=== PATIENT | male | born 1985 ===

== ENCOUNTER 2025-02-26 13:06 | Outpatient (CLI) | payer MEDICAID, SELFPAY ==
[2025-02-26 13:25] LABS: Abs Immature Grans 0.02 10^3/uL (0.0-0.06); HCT 43.0 % (40.0-50.0); HGB 14.8 g/dL (13.5-17.5); Immature Grans % 0.4 %; MCH 29.2 pg (27.0-33.0); MCHC 34.4 % (32.0-36.0); MCV 85 fL (80-95); MPV 10.2 fL (8.0-11.0); Platelet Count 133 10^3/uL (130-400); RBC 5.06 10^6/uL (4.36-5.78); RDW 13.3 % (11.8-14.1); RDW-SD 41.2 fL; WBC 5.48 10^3/uL (4.4-10.8)
[2025-02-26 13:55] LABS: ALT 408 U/L (16-63); AST 227 U/L (15-37); Albumin 3.9 g/dL (3.4-5.0); Alkaline Phosphatase 64 U/L (46-116); Anion Gap 5.8 mmol/L (3-11); BUN 17 mg/dL (7-18); Bilirubin, Total 0.8 mg/dL (0.2-1.0); CO2 30.2 mmol/L (21.0-32.0); Calcium 9.5 mg/dL (8.5-10.1); Chloride 102 mmol/L (98-107); Estimated GFR 111.42 (mL/min/1.73m2); Glucose 82 mg/dL (74-106); Potassium 3.9 mmol/L (3.5-5.1); Sodium 138 mmol/L (136-145); Total Protein 9.0 g/dL (6.4-8.2)
[2025-02-27 15:18] LABS: Hepatitis C Ab w Rflx HCV PCR Reactive (Negative)
[2025-02-27 23:02] LABS: Hep B Core Antibody Negative (Negative)
[2025-02-28 12:25] LABS: HCV RNA Qualitative Detected (Undetected)
== END 2025-02-26 13:07 | disposition home or self-care (01) ==
LOC: LBO 13:06
PROVIDERS: Visit Provider Nurse Practitioner
DX: B19.20 Unspecified viral hepatitis C without hepatic coma (principal)
CPT/HCPCS: 36415; 80053; 86704; 86803; 87522; 85025; 87521